=== PATIENT | female | born 1990 | race Hispanic/Latino ===

== ENCOUNTER 2025-05-31 15:12 | Emergency (ER) | payer SELFPAY ==
[~2025-05-31] VITALS: Ht 154.9 cm; Wt 50.3 kg
--- NOTE | 2025-05-31 15:58 | ERN ---
General Chief Complaint: Multiple Complaints Stated Complaint: BODY ACHES, FEVER, VOMITING, HEADACHE, RASH Time Seen by MD: 15:15 Time Seen by Midlevel: 15:15 Source: patient History of Present Illness Initial Comments 34-year-old female presents to the emergency department due to multiple complaints. Patient reports body aches, fever, headache, rash. Denies any shortness of breath, chest pain, abdominal pain or further associated symptoms. Denies significant past medical history. Allergies: Coded Allergies: No Known Allergies (Verified Allergy, Unknown, 10/08/14) Home Meds No Active Prescriptions or Reported Meds Past Medical History Past Medical History: No Pertinent History Past Surgical History: BTL ROS Dictation Constitutional: Positive for body aches, fever Negative for chills, and weight loss Eyes: Negative for injury, pain,redness, and discharge ENT: Negative for injury,pain or swelling Cardiovascular: Negative for chest pain, palpitations, and edema Respiratory: Negative for shortness of breath, cough, and wheezing, Abdomen/GI: Negative for abdominal pain, nausea, vomiting, diarrhea, and con stipation Back: Negative for injury and pain : Negative for painful urination, bleeding or discharge MS/Extremity: Negative for injury and deformity Skin: Positive for rash Negative for and discoloration Neuro: Positive for headache Negative for weakness, numbness, tingling, and seizure Psych: Negative for suicide ideation, homicidal ideation, and hallucinations Results Laboratory and Microbiology Lab and Micro Result Laboratory Tests Test 05/31/25 15:14 05/31/25 16:12 Urine Color LIGHT-ORANGE (YELLOW) Urine Appearance TURBID (CLEAR) Urine pH 6.0 (5.0-8.0) Urine Specific [place] 1.016 (1.001-1.031) Urine Protein 70 mg/dL (NEGATIVE) H Urine Glucose (UA) NEGATIVE mg/dL (NEGATIVE) Urine Ketones 40 mg/dL (NEGATIVE) H Urine Occult Blood LARGE (NEGATIVE) H Urine Nitrate NEGATIVE (NEGATIVE) Urine Bilirubin 0.5 mg/dL (NEGATIVE) H Urine Urobilinogen 4.0 mg/dL (0.2-1.0) H Urine Leukocyte Esterase 250 Dana/uL (NEGATIVE) H Urine RBC 11-25 /HPF (0-1) H Urine WBC 26-50 /HPF (0-1) H Urine WBC Clumps (Auto) MANY /HPF (0-1) Urine Squamous Epithelial Cells FEW /HPF (0-2) Urine Non-Squamous Epithelial Cells 3 /HPF (0-2) Urine Other Crystals (Auto) 2 /HPF (None Seen) Urine Bacteria MANY /HPF (None Seen) Urine Yeast FEW /HPF (None Seen) Urine HCG, Qualitative NEGATIVE (NEGATIVE) Influenza Type A Antigen Negative For Type A Influenza Type B Antigen Negative For Type B SARS-CoV-2 Antigen (Rapid) PRESUMPTIVE NEGATIVE Group A Streptococcus Rapid positive (NEGATIVE) *A MDM MDM: 34-year-old female presents to the emergency department due to multiple complaints. Patient reports body aches, fever, headache, rash. Denies any shortness of breath, chest pain, abdominal pain or further associated symptoms. Denies significant past medical history. Patient has a positive for strep throat, and urinary sample shows positive for urinary tract infection. Fluids, Tylenol, Rocephin given in the emergency room. Keflex will be given to treat both urinary tract infection and strep throat. Discussed findings with the patient. Educated patient to follow up with PCP in 1-2 days and if symptoms worsen to return back to the emergency room. Patient verbalized understanding, answered all questions. Differential diagnosis: Viral syndrome, strep, COVID his, UTI Rationale: Tests considered and ordered secondary to shared decision making include: Previous outside records reviewed: Old ER visits. Risk of complication and/or morbidity or mortality of patient management: None Medications-Per medication reconciliation Need for hospitalization: Patient does not meet criteria for hospitalization. Need for emergency major/minor surgery: No There are no social concerns with this patient. Prescription drug management Prescriptions will include symptomatic care Patient's prior external medical records from other ER visits were reviewed by me as indicated. Prior testing and results from previous visits were reviewed. Prior tests were taken into account with medical decision making and resource utilization, independent historian/historians were used to obtain complete medical history. I independently interpreted the test that were performed, results were reviewed by me and considered findings on radiology if ordered. Medical management and examination interpretation discussions were had by me with other qualified healthcare professionals as indicated for the patient's care. ED Course Orders Procedure Category Date Status Time Covid19 (Sars Antigen LAB 05/31/25 Complete Rapid) 15:49 Influenza Type A & B, LAB 05/31/25 Complete Rapid 15:49 Rapid (Group A Strep) LAB 05/31/25 Complete 15:49 Urinalysis LAB 05/31/25 Complete W/Microscopic 15:49 ,Urine Test LAB 05/31/25 Complete 15:49 Acetaminophen 500mg PHA 05/31/25 Complete Tab (Tylenol 500mg T 16:00 0.9%Nacl 1000ml (Ns PHA 05/31/25 Complete 1000ml) 16:30 Culture Urine VITALY 05/31/25 In Process 16:26 Ceftriaxone 1g Vial PHA 05/31/25 Complete (Rocephine 1g Inj) 16:46 Current Medications Medications (Trade) Dose Ordered Sig/Skip Route PRN Reason Start Time Stop Time Status Last Admin Dose Admin Acetaminophen (TYLenol 500MG TAB) 1,000 mg ONCE ONCE PO 05/31/25 16:00 05/31/25 16:01 DC 05/31/25 16:30 Ceftriaxone Sodium (ROCEphine 1G INJ) 1 gm ONCE STAT IVPB 05/31/25 16:46 05/31/25 16:48 DC Sodium Chloride 1,000 ml @ 0 mls/hr ONCE ONCE IV 05/31/25 16:30 05/31/25 16:31 DC 05/31/25 16:30 Vital Signs Date Time Temp Pulse Resp B/P (MAP) Pulse Ox O2 Delivery O2 Flow Rate FiO2 05/31/25 15:13 99.1 105 14 95/65 100 Room Air 0 DX & DISP Disposition: Discharge Departure Impression: Primary Impression: Strep throat Additional Impression: UTI (urinary tract infection) Condition: Stable Scripts Cephalexin Monohydrate (Keflex) 500 Mg Cap 500 MG PO QID for 7 Days, #28 CAP Prov: GIGI REZA NP 05/31/25 Additional Instructions: You can take Tylenol and Motrin [id number] for pain control. Take antibiotics as prescribed. Return to the hospital for any worsening condition, otherwise follow up with your PCP. Referrals: SELF,REFERRAL (PCP) Time of Disposition: 17:06 I have reviewed the case, and I agree with, Diagnosis and Plan OLGA LIDIA WARREN May 31, 2025 15:57 GIGI REZA NP May 31, 2025 17:07
[2025-05-31 16:24] LABS: APPEARANCE,URINE TURBID (CLEAR); GLUCOSE, URINE (UA) NEGATIVE (NEGATIVE); LEUKOCYTE ESTERASE ,URINE 250 Leu/uL (NEGATIVE); NITRATE,URINE NEGATIVE (NEGATIVE); OCCULT BLOOD,URINE LARGE (NEGATIVE)
[2025-05-31 16:25] LABS: HCG,QUALITATIVE URINE NEGATIVE (NEGATIVE)
[2025-05-31] MEDS: 0.9%NACL 1000ML 1,000 ML IV ONE (16:30)
[2025-05-31 16:31] LABS: NON-SQUAMOUS EPITHELIAL CELL 3 /HPF (0-2); SQUAMOUS EPITHELIAL CELL,UR FEW /HPF (0-2); UNCLASSIFIED CRYSTAL 2 /HPF (None Seen); WBC CLUMP MANY /HPF (0-1); YEAST,URINE BUDDING FEW /HPF (None Seen)
[2025-05-31 16:36] LABS: RAPID GROUP A STREP positive (NEGATIVE)
[2025-05-31 16:38] LABS: COVID19 (SARS ANTIGEN RAPID) PRESUMPTIVE NEGATIVE (NEGATIVE); INFLUENZA TYPE A Negative For Type A (NEGATIVE); INFLUENZA TYPE B Negative For Type B (NEGATIVE)
[2025-05-31] MEDS ORDERED: CEPH500B PO (17:07)
[2025-05-31 17:09] VITALS: BP 100/68; PULSE 90; RESP 18; TEMP 98.9; O2SAT 100
== END 2025-05-31 17:17 | disposition home or self-care (01) ==
LOC: EDH 15:12
DX: J02.0 Streptococcal pharyngitis (principal); N39.0 Urinary tract infection, site not specified; Z98.51 Tubal ligation status; Z20.822 Contact with and (suspected) exposure to COVID-19
CPT/HCPCS: 99283; 96374; 96361; 87426; 87086 ×2; 87186; 87880; 87804 ×2; 81001; 81025; J7030; J0696